=== PATIENT | female | born 1975 | race American Indian/Alaskan Native ===

== ENCOUNTER 2017-01-21 21:17 | Emergency (ER) | payer OTHER ==
[2017-01-22] MEDS ORDERED: TORADOL IM ONE (00:51)
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
[2017-01-22 02:34] VITALS: BP 122/76
== END 2017-01-22 01:30 | disposition home or self-care (01) ==
LOC: ED 21:17
DX: M79.1 Myalgia (principal); M54.6 Pain in thoracic spine; V49.49XA Driver injured in collision with other motor vehicles in traffic accident, initial encounter; X58.XXXA Exposure to other specified factors, initial encounter; Y93.9 Activity, unspecified; Y92.9 Unspecified place or not applicable; Y99.9 Unspecified external cause status
CPT/HCPCS: 96372; 99282; J1885